=== PATIENT | female | born 1960 | race Caucasian/White ===

== ENCOUNTER → 2023-08-01 10:46 | Outpatient (REF) | payer MEDICARE, OTHER, SELFPAY | LOC: RAD 10:46 | PROVIDERS: ATTENDING PHYSICIAN Urology; FAMILY PHYSICIAN Family Medicine | DX: M81.6 Localized osteoporosis [Lequesne] (principal); R39.89 Other symptoms and signs involving the genitourinary system; M62.89 Other specified disorders of muscle | CPT/HCPCS: 76770; 76856 ==

== ENCOUNTER → 2023-10-10 17:03 | Outpatient (REF) | payer MEDICARE, OTHER, SELFPAY | LOC: RAD 17:03 | PROVIDERS: ATTENDING PHYSICIAN Nurse Practitioner Adult Health; FAMILY PHYSICIAN Family Medicine | DX: R07.9 Chest pain, unspecified (principal); R07.81 Pleurodynia | CPT/HCPCS: 71101 ==

== ENCOUNTER → 2024-01-17 11:20 | Outpatient (REF) | payer MEDICARE, OTHER, SELFPAY | LOC: RAD 11:20 | PROVIDERS: ATTENDING PHYSICIAN Obstetrics & Gynecology; FAMILY PHYSICIAN Family Medicine | DX: M81.0 Age-related osteoporosis without current pathological fracture (principal) | CPT/HCPCS: 77080 ==

== ENCOUNTER → 2024-07-18 13:52 | Outpatient (REF) | payer OTHER, SELFPAY | LOC: HWRAD 13:52 | PROVIDERS: ATTENDING PHYSICIAN Otolaryngology; FAMILY PHYSICIAN Family Medicine | DX: J01.00 Acute maxillary sinusitis, unspecified (principal) | CPT/HCPCS: 70486 ==

== ENCOUNTER → 2024-08-21 10:00 | Outpatient (REF) | payer OTHER, SELFPAY | LOC: CLAB 10:00 | PROVIDERS: ATTENDING PHYSICIAN Otolaryngology | DX: J01.00 Acute maxillary sinusitis, unspecified (principal); J34.2 Deviated nasal septum; J34.3 Hypertrophy of nasal turbinates | CPT/HCPCS: 87070; 87075; 87205; 88304; 88311 ==

== ENCOUNTER → 2024-12-19 11:00 | Outpatient (REF) | payer OTHER, SELFPAY | LOC: CLAB 11:00 | PROVIDERS: ATTENDING PHYSICIAN Otolaryngology | DX: J32.0 Chronic maxillary sinusitis (principal) | CPT/HCPCS: 87070; 87205 ==

== ENCOUNTER → 2025-01-27 18:20 | Outpatient (REF) | payer OTHER, SELFPAY | LOC: MRI 18:20 | PROVIDERS: ATTENDING PHYSICIAN Specialist; FAMILY PHYSICIAN Family Medicine | DX: G50.1 Atypical facial pain (principal) | CPT/HCPCS: 70553; A9575 ==